=== PATIENT | female | born 1985 | race Caucasian/White ===

== ENCOUNTER 2018-02-04 11:43 | Day surgery (SDC) | payer MEDICAID ==
[~2018-02-04] VITALS: Ht 172.7 cm; Wt 88.3 kg
[~2018-02-04 11:43] MED LIST: LORTAB 5/500 501 TAB PO
[2018-02-04 12:43] VITALS: BP 123/68; PULSE 84; TEMP 98.9
[2018-02-04] MEDS ORDERED: ESTRACE 1MG1 MG/TAB PO (12:48)
--- NOTE | 2018-02-04 12:49 | NUR ---
TO RM AT 1220- CALL LIGHT IN REACH AND FATHER AT BEDSIDE.
[2018-02-04 13:55] VITALS: BP 121/79; PULSE 72; TEMP 97.9
--- NOTE | 2018-02-04 13:55 | NUR ---
TO BAY 2 PER CART FROM ENDOSCOPY. ALERT ORIENTED X3, TALKING WITH FAMILY AND STAFF.
[2018-02-04 14:10] VITALS: BP 121/85; PULSE 67
--- NOTE | 2018-02-04 14:10 | NUR ---
RECEIVED VANILLA PUDDING AND ICE WATER.
[2018-02-04 14:25] VITALS: BP 134/74; PULSE 74
--- NOTE | 2018-02-04 14:25 | NUR ---
ATE 100% AND TOLERATED WELL DR LUX TALKED TO PATIENT AND FAMILY. UP AMBULATED TO BATHROOM WITH MIN. HELP.
--- NOTE | 2018-02-04 14:35 | NUR ---
RECEIVED DISCHARGE INSTRUCTIONS AND VERBALIZED UNDERSTANDING. RECEIVED PAMPHLET ON WATS BX. DISCONTINUED IV AND INT- CATHETER INACT
--- NOTE | 2018-02-04 14:45 | NUR ---
DISCHARGED PER WC BY NURSING STAFF TO PRIVATE CAR CARE OF AND FATHER.
== END 2018-02-04 14:57 | disposition home or self-care (01) ==
LOC: SDCO 11:43
DX: R10.12 Left upper quadrant pain (principal); K64.0 First degree hemorrhoids; K59.00 Constipation, unspecified; K21.0 Gastro-esophageal reflux disease with esophagitis; R11.2 Nausea with vomiting, unspecified; F17.210 Nicotine dependence, cigarettes, uncomplicated; F41.9 Anxiety disorder, unspecified; R00.2 Palpitations; Z79.899 Other long term (current) drug therapy; Z83.79 Family history of other diseases of the digestive system
CPT/HCPCS: OP; J2704; J7120